=== PATIENT | female | born 1950 | race Caucasian/White ===

== ENCOUNTER 2022-06-16 14:46 | Emergency (ER) | payer MEDICARE, SELFPAY ==
[2022-06-16] VITALS (11 sets, daily range): BP systolic 157–204; BP diastolic 65–89; PULSE 74–88; RESP 13–24; TEMP 36.6; O2SAT 94–99
--- NOTE | 2022-06-16 15:30 | PC.NURSE ---
EDP at bedside to assess pt.
--- NOTE | 2022-06-16 16:10 | ED.GENADULT ---
HPI - General Adult General Chief complaint: Epistaxis Stated complaint: NOSE BLEED X 1 HOUR Time Seen by Provider: 06/16/22 15:27 History of Present Illness HPI narrative: This is a 72-year-old female present to ED with chief complaint of nose bleed. Patient was at her therapist's office when she started having nosebleed. At that time she used direct pressure and was able to get it under control. She then blew her nose and it started bleeding again. She has not brought emergency department for further evaluation. Patient notes that she was picking her nose yesterday. Patient is on Eliquis for paroxysmal AFib. Last dose was this morning. Related Data Allergies Allergy/AdvReac Type Severity Reaction Status Date / Time amoxicillin Allergy Mild Rash Verified 06/16/22 14:55 Review of Systems Review of Systems: CONSTITUTIONAL: Denies night sweats. EYES: No eye pain ENT: Denies rhinorrhea CARDIOVASCULAR: Denies palpitations RESPIRATORY: Denies hemoptysis GASTROINTESTINAL: Denies hematemesis GENITOURINARY: Denies hematuria. SKIN: Denies rash MUSCULOSKELETAL: Denies myalgia. NEUROLOGIC: Denies weakness. PSYCHIATRIC: Denies delusions [facility] Past Medical History Medical History (Updated 06/16/22 @ 16:32 by Aramis Olivas MD) Anxiety Hypertension Paroxysmal A-fib Exam Narrative: APPEARANCE: No apparent distress. Head atraumatic. EYES: PERRLA/EOMI, NOSE: Normal no drainage NECK: Supple, Trachea midline RESPIRATORY: CTAB, No increased work of breathing. CARDIOVASCULAR: S1S2 appreciated ABDOMINAL: Soft, nontender, nondistended, MUSCULOSKELETAl: No obvious deformities NEURO: Alert. Moving 4/4 extremities SKIN:: Warm, dry. Normal color PSYCHIATRIC: Normal affect Course Vital Signs Vital signs: Vital Signs Pulse Rate 88 06/16/22 14:46 Respiratory Rate 19 06/16/22 14:46 Blood Pressure 204/65 H 06/16/22 14:46 Pulse Oximetry 98 06/16/22 14:46 Oxygen Delivery Room Air 06/16/22 14:46 Temperature 98 F 06/16/22 15:28 Pulse Rate 83 06/16/22 16:16 Respiratory Rate 20 06/16/22 16:16 Blood Pressure 181/82 H 06/16/22 16:01 Pulse Oximetry 96 06/16/22 16:16 Oxygen Delivery Room Air 06/16/22 14:46 Medical Decision Making MDM Narrative Medical decision making narrative: this is a 72-year-old female presenting ED with chief complaint of epistaxis. Patient notes that she was picking her nose yesterday. She was able to get him under control with direct pressure at the therapist's office however she then blew her nose and it began bleeding again. We will control here with a nose clamp. I educated the patient on proper method for controlling her nose bleeds including blowing her nose, using Afrin and then holding pressure for 15 20 minutes without releasing. Patient has verbalized her understanding. I have encouraged her to follow up with her primary care physician and her group exercise instructor in regards to her high blood pressure and eliquis use. Patient's monitor technician as interpreted by myself was normal sinus rhythm Vital Signs Vital Signs: Vital Signs Pulse Rate 88 06/16/22 14:46 Respiratory Rate 19 06/16/22 14:46 Blood Pressure 204/65 H 06/16/22 14:46 Pulse Oximetry 98 06/16/22 14:46 Oxygen Delivery Room Air 06/16/22 14:46 Temperature 98 F 06/16/22 15:28 Pulse Rate 83 06/16/22 16:16 Respiratory Rate 20 06/16/22 16:16 Blood Pressure 181/82 H 06/16/22 16:01 Pulse Oximetry 96 06/16/22 16:16 Oxygen Delivery Room Air 06/16/22 14:46 Discharge Plan Discharge Clinical Impression: Epistaxis Patient Disposition: Home, Self-Care Condition: Stable Instructions: Antibiotic Form Additional Instructions: Please follow-up with your primary care physician to discuss your blood pressure. If you continue to have nose bleeds please follow-up with your group exercise instructor in regards to her atrial fibrillation and the necessity of Bruna
== END 2022-06-16 16:38 | disposition home or self-care (01) ==
PROVIDERS: Emergency Provider Emergency Medicine; PCP Internal Medicine
DX: R04.0 Epistaxis (principal); I48.0 Paroxysmal atrial fibrillation; I10 Essential (primary) hypertension; Z79.01 Long term (current) use of anticoagulants
CPT/HCPCS: 99283

== ENCOUNTER 2023-10-02 12:55 | Outpatient (CLI) | payer MEDICARE, SELFPAY ==
--- NOTE | 2023-10-02 14:30 | NEURO_ITS ---
Impression: # Complains of numbness of right hand. # Mild right Carpal Tunnel Syndrome. # No ulnar neuropathy. # Normal needle/EMG exam. Nerve Conduction Studies Anti Sensory Summary Table Stim Site NR Peak (ms) P-T Amp (?V) Site1 Site2 Delta-P (ms) Dist (cm) Naseem (m/s) Right Median Anti Sensory (2-3nd Digit) Wrist 4.1 16.2 Wrist 2-3nd Digit 4.1 14.0 34 Wrist 4.7 14.8 Wrist 2-3nd Digit 4.1 14.0 34 Right Radial Anti Sensory (Base 1st Digit) Wrist 2.2 18.2 Wrist Base 1st Digit 2.2 0.0 Right Ulnar Anti Sensory (5th Digit) Wrist 2.2 34.5 Wrist 5th Digit 2.2 14.0 64 Motor Summary Table Stim Site NR Onset (ms) O-P Amp (mV) Site1 Site2 Delta-0 (ms) Dist (cm) Naseem (m/s) Right Median Motor (Abd Poll Brev) Wrist 3.9 3.2 Elbow Wrist 5.6 29.0 52 Elbow 9.5 1.8 Right Ulnar Motor (Abd Dig Minimi) Wrist 2.5 5.2 A Elbow Wrist 4.9 30.0 61 A Elbow 7.4 4.0 F Wave Studies NR F-Lat (ms) L-R F-Lat (ms) Right Median (Mrkrs) (Abd Poll Brev) 28.32 Right Ulnar (Mrkrs) (Abd Dig Min) 27.89 EMG Side Muscle Nerve Root Ins Act Fibs Amp Dur Recrt Comment Right 1stDorInt Ulnar C8-T1 Nml Nml Nml Nml Nml Right Ext Indicis Radial (Post Int) C7-8 Nml Nml Nml Nml Nml Right Ext Digitorum Radial (Post Int) C7-8 Nml Nml Nml Nml Nml Right BrachioRad Radial C5-6 Nml Nml Nml Nml Nml Right PronatorTeres Median C6-7 Nml Nml Nml Nml Nml Right Abd Poll Brev Median C8-T1 Nml Nml Nml Nml Nml Right ABD Dig Min Ulnar C8-T1 Nml Nml Nml Nml Nml Right Biceps Musculocut C5-6 Nml Nml Nml Nml Nml Right Triceps Radial C6-7-8 Nml Nml Nml Nml Nml Right Deltoid Axillary C5-6 Nml Nml Nml Nml Nml MTDD
== END 2023-10-02 12:56 | disposition home or self-care (01) ==
LOC: ANHNEURO 12:58
PROVIDERS: PCP Internal Medicine; Visit Provider Internal Medicine
DX: G56.01 Carpal tunnel syndrome, right upper limb (principal)
CPT/HCPCS: 95886; 95909

== ENCOUNTER 2025-07-08 14:30 | Outpatient (RCR) | payer MEDICARE, OTHER, SELFPAY ==
[2025-05-06 12:34] VITALS: BMI 41.6
== END 2025-07-27 09:53 | disposition home or self-care (01) ==
LOC: ANHDMC 14:30
PROVIDERS: PCP Internal Medicine; Visit Provider Internal Medicine
DX: E11.9 Type 2 diabetes mellitus without complications (principal); Z71.89 Other specified counseling; Z71.3 Dietary counseling and surveillance
CPT/HCPCS: 97802; G0108; G0109